=== PATIENT | male | born 1955 | race Caucasian/White ===

== ENCOUNTER 2020-01-25 05:53 | Inpatient (IN) | payer OTHER ==
[~2020-01-25] VITALS: Ht 175.3 cm; Wt 77.3 kg
[2020-01-25] MEDS ORDERED: LIDOCAINE W/ EPINEPHRINE 1 % INJ 30ML ONE (09:04)
[2020-01-25] MEDS ORDERED: METHYLENE BLUE 0.5% 5MG/ML 10ml AMP IV ONE (09:04)
[2020-01-25] MEDS ORDERED: BUPIVACAINE 0.25% INJ 50ML VIAL ONE (09:05)
[2020-01-25] MEDS ORDERED: HYDROmorphone HCL 2 MG/ML VL ONE (10:06)
[2020-01-25] MEDS ORDERED: MIDAZOLAM HCL 1MG/1ML-2 ML VIAL ONE (10:06)
[2020-01-25] MEDS ORDERED: fentaNYL CITRATE 100 MCG/2 ML VL ONE (10:06)
[2020-01-25] MEDS ORDERED: DexAMETHasone SOD PHOS 10MG/1ML VIAL INJ ONE (10:07)
[2020-01-25] MEDS ORDERED: PROPOFOL 10 MG/ML 20 ML IV ONE (10:07)
[2020-01-25] MEDS ORDERED: GLYCOPYRROLATE 0.2 MG/ML 1ML VIAL ONE ×2 (10:07→13:43)
[2020-01-25] MEDS ORDERED: fentaNYL CITRATE 5 ML ONE (10:08)
[2020-01-25] MEDS ORDERED: SUCCINYLCHOLINE CHLORIDE 20 MG/ML 10ML VIAL IV ONE (10:10)
[2020-01-25] MEDS ORDERED: PHENYLEPHRINE HCL 10 MG/ML VL IV ONE (11:05)
[2020-01-25] MEDS ORDERED: levoFLOXacin 500MG 100 ML IV ONE (11:12)
[2020-01-25] MEDS ORDERED: ONDANSETRON HCL 4 MG/2 ML VIAL ONE (12:13)
[2020-01-25] MEDS ORDERED: HYDROmorphone HCL 2 MG/ML VL IV PRN ×2 (12:45→14:30)
[2020-01-25] MEDS ORDERED: ONDANSETRON HCL 4 MG/2 ML VIAL IV PRN ×2 (12:45→14:30)
[2020-01-25] MEDS ORDERED: MIDAZOLAM HCL 1MG/1ML-2 ML VIAL IV PRN (12:45)
[2020-01-25] MEDS ORDERED: ePHEDrine SULFATE 50 MG/ML AMP IV PRN (12:45)
[2020-01-25] MEDS ORDERED: LABETALOL HCL 5 MG/ML 4ML SYRINGE IV PRN (12:45)
[2020-01-25] MEDS ORDERED: MORPHINE SULF INJ 2 MG/ML SYRINGE 1ML IV PRN (12:45)
[2020-01-25] MEDS ORDERED: NEOSTIGMINE 1 MG/ML INJ (10mg/10ML VIAL) ONE (13:43)
[2020-01-25] MEDS ORDERED: DOXAPRAM HCL 20 MG/ML 20ML VIAL INJ IV ONE (14:05)
[2020-01-25] MEDS ORDERED: diphenhdrAMINE HCL 50 MG/1 ML VL IV PRN (14:30)
[2020-01-25] MEDS ORDERED: ACETAMINOPHEN/CODEINE#3 (300/30mg) TAB PO PRN (14:30)
[2020-01-25] MEDS ORDERED: LABETALOL HCL 5 MG/ML 4ML SYRINGE IV ONE (15:00)
[2020-01-25] MEDS ORDERED: LABETALOL HCL 5 MG/ML ML 20ML VIAL IV ONE (15:15)
[2020-01-25 16:48] VITALS: BP 169/85
[2020-01-25] MEDS ORDERED: LORazepam 2MG/ML-1ML VIAL IV PRN (17:15)
[2020-01-25 17:32] LABS: BUN/Creatinine Ratio 12.1; Calcium 8.5 mg/dL (8.5-10.1)
[2020-01-25] MEDS: D5W/SOD CHL 0.45% 1,000 ML IV SCH ×2 (18:51→22:38)
[2020-01-25 21:20] VITALS: BP 163/88
[2020-01-25 22:00] VITALS: BP 140/98
[2020-01-25 23:14] VITALS: BP 140/98
[2020-01-26 04:50] VITALS: BP 146/77
[2020-01-26] MEDS: D5W/SOD CHL 0.45% 1,000 ML IV SCH ×2 (06:26→14:03)
[2020-01-26 09:00] VITALS: BP 148/82
[2020-01-26 13:00] VITALS: BP 108/69
[2020-01-26 17:25] VITALS: BP 136/82
[2020-01-26 18:04] VITALS: BP 132/82
== END 2020-01-26 18:45 | disposition home or self-care (01) | DRG 708 ==
LOC: OVERFLOW 05:53 → EDSTATUS 07:00 → TELE-WESTW 16:00 → WEST WING 01-26 11:36
PROVIDERS: ADMIT Urology; ATTEND Urology
PROC: 0VT04ZZ Resection of Prostate, Percutaneous Endoscopic Approach (ICD-10-PCS; principal; 2020-01-26)
PROC: 07BC4ZZ Excision of Pelvis Lymphatic, Percutaneous Endoscopic Approach (ICD-10-PCS; 2020-01-26)
PROC: 8E0W4CZ Robotic Assisted Procedure of Trunk Region, Percutaneous Endoscopic Approach (ICD-10-PCS; 2020-01-26)
PROC: 0TQC4ZZ Repair Bladder Neck, Percutaneous Endoscopic Approach (ICD-10-PCS; 2020-01-26)
DX: C61 Malignant neoplasm of prostate (principal); K59.09 Other constipation; Z80.42 Family history of malignant neoplasm of prostate; Z83.3 Family history of diabetes mellitus; Z79.899 Other long term (current) drug therapy; Z79.82 Long term (current) use of aspirin; N18.2 Chronic kidney disease, stage 2 (mild); N28.9 Disorder of kidney and ureter, unspecified; Z11.59 Encounter for screening for other viral diseases
CPT/HCPCS: 36415; 80048; 86850; 86900; 86901; G0378; J0330; J1100; J1956; J2250; J2405; J2704; J3490